=== PATIENT | female | born 1990 | race Two or more races ===

== ENCOUNTER 2022-08-31 06:00 | Emergency (ER) | payer MEDICAID, OTHER ==
[~2022-08-31] VITALS: Ht 165.1 cm; Wt 75.0 kg
[2022-08-31 06:18] LABS: COVID AG,FIA SOURCE NASAL SWAB
[2022-08-31] MEDS ORDERED: ACETAMINOPHEN 500 MG TABLET PO ONE (06:45)
[2022-08-31] MEDS ORDERED: IBUPROFEN 600 MG TABLET PO ONE (06:45)
[2022-08-31 06:56] LABS: INFLUENZA TYPE A NEGATIVE FOR TYPE A (NEGATIVE); INFLUENZA TYPE B NEGATIVE FOR TYPE B (NEGATIVE)
[2022-08-31] MEDS ORDERED: IBUP-2070 PO (07:18)
[2022-08-31] MEDS ORDERED: ACET-3385 PO (07:18)
[2022-08-31 07:24] VITALS: BP 112/73
== END 2022-08-31 07:44 | disposition home or self-care (01) ==
LOC: EMS 06:02
DX: B34.9 Viral infection, unspecified (principal); Z20.822 Contact with and (suspected) exposure to COVID-19; R51.9 Headache, unspecified
CPT/HCPCS: 71046; 87804; 99284